=== PATIENT | male | born 1995 | race Caucasian/White ===

== ENCOUNTER 2022-05-22 18:39 | Emergency (ER) | payer OTHER ==
[~2022-05-22] VITALS: Ht 177.8 cm; Wt 84.1 kg
[2022-05-22 18:49] VITALS: TEMP 98.7
[2022-05-22] MEDS ORDERED: FLEXERIL 1010 MG/TAB PO (21:28)
[2022-05-22 21:37] VITALS: BP 118/87; PULSE 74
== END 2022-05-22 21:37 | disposition home or self-care (01) ==
LOC: COL.ER 18:39
DX: S16.1XXA Strain of muscle, fascia and tendon at neck level, initial encounter (principal); S39.012A Strain of muscle, fascia and tendon of lower back, initial encounter; F17.220 Nicotine dependence, chewing tobacco, uncomplicated; Z28.310 Unvaccinated for COVID-19; V43.62XA Car passenger injured in collision with other type car in traffic accident, initial encounter; Y92.410 Unspecified street and highway as the place of occurrence of the external cause